=== PATIENT | male | born 1995 | race Caucasian/White ===

== ENCOUNTER 2021-07-21 09:05 | Emergency (ER) | payer SELFPAY ==
[~2021-07-21] VITALS: Ht 172.7 cm; Wt 65.8 kg
--- NOTE | 2021-07-21 09:41 | NUR ---
[employer] OFFICERS AT BEDSIDE TALKING TO THE PT.
[2021-07-21] MEDS ORDERED: NALO4SPR NS (10:13)
--- NOTE | 2021-07-21 10:21 | NUR ---
PT'S FATHER AT BEDSIDE
--- NOTE | 2021-07-21 11:19 | NUR ---
Patient discharged to home in stable condition. Written and verbal after care instructions given. Patient verbalizes understanding of instructions. Stressed follow up or return to ER for worsening s/s.pt says feels better, denies any complain or distress, family members accompanying pt to go home.
[2021-07-21 11:20] VITALS: BP 121/69
== END 2021-07-21 11:20 | disposition home or self-care (01) ==
LOC: ER 09:05
DX: T40.411A Poisoning by fentanyl or fentanyl analogs, accidental (unintentional), initial encounter (principal); R06.81 Apnea, not elsewhere classified; Y92.013 Bedroom of single-family (private) house as the place of occurrence of the external cause
CPT/HCPCS: A4663